=== PATIENT | female | born 1935 | race Caucasian/White ===

== ENCOUNTER 2018-11-27 13:30 | Outpatient (CLI) | payer MEDICARE ==
--- NOTE | 2018-11-27 15:33 | ULT ---
BILATERAL CAROTID DUPLEX ULTRASOUND: DATE: 11/27/18 HISTORY: Arteriosclerosis. TECHNIQUE: Norman scale ultrasound with color flow and spectral Doppler imaging of the extracranial carotid artery systems performed bilaterally. FINDINGS: There is plaque formation on both sides, left greater than right. The peak systolic velocity in the right ICA measures 59 cm/second with an end-diastolic velocity of 1 2 cm/second and a systolic ratio of 1.14. The peak systolic velocity in the left ICA measures 76 cm/second with an end-diastolic velocity of 23 cm/second and a systolic ratio of 1.20. Flow in both vertebral arteries remains antegrade. IMPRESSION: No evidence of hemodynamically significant stenosis. POS: OFF
== END 2018-11-27 13:31 | disposition home or self-care (01) ==
LOC: BICULT 13:30
PROVIDERS: ATTEND Family Medicine
DX: I65.23 Occlusion and stenosis of bilateral carotid arteries (principal)
CPT/HCPCS: 93880

== ENCOUNTER 2020-04-28 01:26 | Inpatient (IN) | payer MEDICARE ==
[2020-04-28] MEDS: glipiZIDE 5 MG TAB PO SCH (09:00)
[2020-04-28] MEDS ORDERED: Acetaminophen 325 MG TAB PO PRN (09:01)
[2020-04-28] MEDS ORDERED: Famotidine 20 MG TAB PO SCH (09:01)
[2020-04-28] MEDS ORDERED: Acetaminophen 650 MG Suppository PR PRN (09:01)
[2020-04-28] MEDS ORDERED: Senokot S 8.6-50 MG TAB PO PRN (09:01)
[2020-04-28] MEDS ORDERED: Guaifenesin DM 100-10/5 ML UDCUP PO PRN (09:01)
[2020-04-28] MEDS ORDERED: Ondansetron PF 4 MG/2 ML Vial IVP PRN (09:01)
[2020-04-28] MEDS ORDERED: Ondansetron ODT 4 MG TAB PO PRN (09:01)
[2020-04-28] MEDS ORDERED: Furosemide 40 MG/4 ML VIAL SLOW IVP SCH (09:40)
[2020-04-28] MEDS ORDERED: Lorazepam 2 MG/ML VIAL SLOW IVP PRN (10:34)
[2020-04-28] MEDS: Losartan 25 MG TAB PO SCH (11:46)
[2020-04-28] MEDS: Enoxaparin Sodium 40 MG/0.4 ML SYRINGE SC SCH (11:47)
[2020-04-28] MEDS: cefTRIAXone\\ROCEPHIN 1 GM in Sodium Chloride 0.9% 100 ML IVPB SCH (11:48)
[2020-04-28] MEDS: Propranolol HCl LA 80 MG CAP PO SCH (15:37)
[2020-04-28] MEDS ORDERED: hydrALAZINE 20 MG/ML VIAL SLOW IVP PRN (15:45)
[2020-04-28] MEDS ORDERED: Labetalol HCl 100 MG/20 ML VIAL SLOW IVP PRN (15:45)
[2020-04-28] MEDS ORDERED: Dextrose 50% Abboject 50 ML SYRINGE SLOW IVP PRN (16:04)
[2020-04-28] MEDS ORDERED: Dextrose 5% in Water 1,000 ML IV PRN (16:04)
[2020-04-28] MEDS ORDERED: HumaLOG 300 UNITS/3 ML VIAL SC PRN ×2 (16:04)
[2020-04-28] MEDS: Furosemide 40 MG/4 ML VIAL SLOW IVP SCH (16:19)
[2020-04-28] MEDS ORDERED: Melatonin 3 MG TAB PO PRN (21:50)
[2020-04-29 05:04] LABS: #Eosinphils 0.2 thou/uL (0.0-0.7); #Lymphocytes 1.4 thou/uL (1.20-3.40); #Monocytes 0.7 thou/uL (0.11-0.59); %Basophils 0.5 % (0.0-1.0); %Eosinophils 2.6 % (0.0-10.0); %Lymphocytes 21.6 % (21.0-51.0); %Monocytes 11.6 % (0.0-10.0); %Neutrophils 63.7 % (42.0-75.0); Mean Corpuscular HGB CONC 32.3 g/dL (32.0-36.0); Mean Corpuscular Hemoglobin 27.6 pg (27.0-31.0); Mean Corpuscular Volume 85.4 fL (78.0-98.0); Mean Platelet Volume 8.9 fL (7.4-10.4); Platelet Count 177 thou/uL (130-400); RBC Distribution Width 14.4 % (11.5-14.5); Red Blood Cell (RBC) Count 3.97 mill/uL (4.20-5.40); White Blood Cell (WBC) Count 6.3 thou/uL (4.8-10.8)
[2020-04-29 05:26] LABS: Anion Gap 15 mmol/L (10-20); BUN (Urea Nitrogen) 22 mg/dL (9.8-20.1); Calc. Creatinine Clearance 45 mL/min (70-130); Calcium 8.5 mg/dL (7.8-10.44); Carbon Dioxide 28 mmol/L (23-31); Chloride 99 mmol/L (98-107); Glucose 144 mg/dL (83-110); Magnesium 1.6 mg/dL (1.6-2.6); Sodium 139 mmol/L (136-145)
[2020-04-29 05:31] LABS: Potassium 2.8 mmol/L (3.5-5.1)
[2020-04-29] MEDS: Furosemide 40 MG/4 ML VIAL SLOW IVP SCH ×2 (05:57→14:39)
[2020-04-29] MEDS ORDERED: Potassium Chloride 20 MEQ TAB PO SCH ×2 (07:00)
[2020-04-29] MEDS: Enoxaparin Sodium 40 MG/0.4 ML SYRINGE SC SCH (09:13)
[2020-04-29] MEDS: Loratadine 10 MG TAB PO SCH (09:13)
[2020-04-29 10:44] VITALS: BMI 30.6
[2020-04-29] MEDS: Losartan 25 MG TAB PO SCH (11:21)
[2020-04-29] MEDS: Propranolol HCl LA 80 MG CAP PO SCH (11:21)
[2020-04-29] MEDS: glipiZIDE 5 MG TAB PO SCH (11:22)
[2020-04-29] MEDS: cefTRIAXone\\ROCEPHIN 1 GM in Sodium Chloride 0.9% 100 ML IVPB SCH (11:22)
[2020-04-29] MEDS ORDERED: Losartan 25 MG TAB PO SCH (16:15)
[2020-04-29] MEDS: Potassium Chloride 20 MEQ TAB PO SCH (16:39)
[2020-04-29] MEDS: Apixaban 5 MG TAB PO SCH (20:31)
[2020-04-30 06:29] LABS: #Eosinphils 0.2 thou/uL (0.0-0.7); #Lymphocytes 1.5 thou/uL (1.20-3.40); #Monocytes 0.7 thou/uL (0.11-0.59); #Neutrophils 2.9 thou/uL (1.40-6.50); %Basophils 0.7 % (0.0-1.0); %Eosinophils 3.7 % (0.0-10.0); %Lymphocytes 27.6 % (21.0-51.0); Hemoglobin 10.7 g/dL (12.0-16.0); Mean Corpuscular HGB CONC 32.2 g/dL (32.0-36.0); Mean Corpuscular Hemoglobin 27.6 pg (27.0-31.0); Mean Corpuscular Volume 85.9 fL (78.0-98.0); Mean Platelet Volume 8.6 fL (7.4-10.4); Platelet Count 190 thou/uL (130-400); RBC Distribution Width 14.4 % (11.5-14.5); Red Blood Cell (RBC) Count 3.87 mill/uL (4.20-5.40); White Blood Cell (WBC) Count 5.3 thou/uL (4.8-10.8)
[2020-04-30 06:47] LABS: Anion Gap 13 mmol/L (10-20); BUN (Urea Nitrogen) 21 mg/dL (9.8-20.1); Calc. Creatinine Clearance 45 mL/min (70-130); Calcium 8.4 mg/dL (7.8-10.44); Carbon Dioxide 31 mmol/L (23-31); Cardiac Risk 3.9 (Less than 4.5); Chloride 99 mmol/L (98-107); Cholesterol 138 mg/dl (< 200 Desired); Glucose 126 mg/dL (83-110); HDL Cholesterol 35 mg/dL (>60 Neg Risk); LDL Cholesterol, Calculated 89 mg/dL; Potassium 3.3 mmol/L (3.5-5.1); Sodium 140 mmol/L (136-145); Triglycerides 70 mg/dL (Less than 150)
[2020-04-30] MEDS ORDERED: Losartan 25 MG TAB PO SCH (09:00)
[2020-04-30] MEDS ORDERED: Furosemide 20 MG TAB PO SCH (09:00)
[2020-04-30] MEDS: Propranolol HCl LA 80 MG CAP PO SCH (09:31)
[2020-04-30] MEDS: glipiZIDE 5 MG TAB PO SCH (09:31)
[2020-04-30] MEDS: Apixaban 5 MG TAB PO SCH (09:32)
[2020-04-30] MEDS: Loratadine 10 MG TAB PO SCH (09:33)
[2020-04-30] MEDS: Potassium Chloride 20 MEQ TAB PO SCH (09:33)
[2020-04-30] MEDS: cefTRIAXone\\ROCEPHIN 1 GM in Sodium Chloride 0.9% 100 ML IVPB SCH (09:52)
[2020-04-30 11:51] VITALS: BP 188/72; TEMP 97.9
== END 2020-04-30 13:40 | disposition home health service (06) | DRG 689 ==
LOC: ERS 01:26 → 3SE 02:01
PROVIDERS: ADMIT Internal Medicine; ATTEND Emergency Medicine
DX: N39.0 Urinary tract infection, site not specified (principal); I50.33 Acute on chronic diastolic (congestive) heart failure; N17.9 Acute kidney failure, unspecified; I48.20 Chronic atrial fibrillation, unspecified; Z20.822 Contact with and (suspected) exposure to COVID-19; E87.6 Hypokalemia; I16.0 Hypertensive urgency; R60.0 Localized edema; E11.9 Type 2 diabetes mellitus without complications; I11.0 Hypertensive heart disease with heart failure; E78.5 Hyperlipidemia, unspecified; E78.00 Pure hypercholesterolemia, unspecified; I45.6 Pre-excitation syndrome; Z96.652 Presence of left artificial knee joint; D64.9 Anemia, unspecified; F41.9 Anxiety disorder, unspecified; Z28.21 Immunization not carried out because of patient refusal; Z87.891 Personal history of nicotine dependence; Z90.49 Acquired absence of other specified parts of digestive tract; Z90.710 Acquired absence of both cervix and uterus; Z80.3 Family history of malignant neoplasm of breast; Z82.49 Family history of ischemic heart disease and other diseases of the circulatory system; Z88.3 Allergy status to other anti-infective agents; Z88.0 Allergy status to penicillin; Z88.8 Allergy status to other drugs, medicaments and biological substances; Z87.440 Personal history of urinary (tract) infections; Z79.84 Long term (current) use of oral hypoglycemic drugs; Z79.899 Other long term (current) drug therapy
CPT/HCPCS: 36415; 36416; 78451; 80048; 80061; 83735; 84484; 85025; 93306; 99285; A9500; J0696; J1650; J1940; J2060; J3490

== ENCOUNTER 2020-05-18 12:50 | Inpatient (IN) | payer MEDICARE ==
[2020-05-18] MEDS ORDERED: Nitroglycerin 0.4 MG TAB (25 Tab Bottle) SL PRN (15:33)
[2020-05-18] MEDS ORDERED: Sodium Chloride 0.9% 1,000 ML IV SCH (15:45)
[2020-05-18] MEDS ORDERED: Ondansetron PF 4 MG/2 ML Vial IVP PRN (15:45)
[2020-05-18] MEDS ORDERED: Acetaminophen 325 MG TAB PO PRN (15:45)
[2020-05-18] MEDS ORDERED: Ondansetron ODT 4 MG TAB SL PRN (15:45)
[2020-05-18 16:23] VITALS: BMI 32.5
[2020-05-18] MEDS ORDERED: Apixaban 5 MG TAB PO SCH (21:00)
[2020-05-18] MEDS: Sodium Chloride 0.9% 1,000 ML IV SCH (21:16)
[2020-05-18] MEDS ORDERED: Dextrose 5% in Water 1,000 ML IV PRN (23:12)
[2020-05-18] MEDS ORDERED: Dextrose 50% Abboject 50 ML SYRINGE SLOW IVP PRN (23:12)
[2020-05-19 04:14] LABS: Anion Gap 12 mmol/L (10-20); BUN (Urea Nitrogen) 17 mg/dL (9.8-20.1); Calc. Creatinine Clearance 64 mL/min (70-130); Calcium 8.2 mg/dL (7.8-10.44); Carbon Dioxide 21 mmol/L (23-31); Chloride 108 mmol/L (98-107); Glucose 128 mg/dL (83-110); Potassium 3.6 mmol/L (3.5-5.1); Sodium 137 mmol/L (136-145)
[2020-05-19] MEDS ORDERED: Preparation H HC 1% Cream 26 GM TUBE TOP SCH (09:00)
[2020-05-19] MEDS ORDERED: Propranolol HCl LA 80 MG CAP PO SCH (09:00)
[2020-05-19] MEDS: Aspirin Chewable 81 MG TAB PO SCH (09:06)
[2020-05-19] MEDS: Loratadine 10 MG TAB PO SCH (09:06)
[2020-05-19] MEDS ORDERED: hydrALAZINE 25 MG TAB PO SCH (09:30)
[2020-05-19] MEDS ORDERED: Carvedilol 6.25 MG TAB PO SCH (10:15)
[2020-05-19] MEDS: Hydrocortisone 1% Cream 30 GM TUBE TOP SCH ×2 (11:10→22:15)
[2020-05-19] MEDS: Sodium Chloride 0.9% 1,000 ML IV SCH (11:36)
[2020-05-19] MEDS: HumaLOG 300 UNITS/3 ML VIAL SC PRN (11:36)
[2020-05-19] MEDS: Carvedilol 6.25 MG TAB PO SCH (16:33)
[2020-05-19] MEDS: hydrALAZINE 25 MG TAB PO SCH ×2 (16:33→22:04)
[2020-05-19] MEDS: Enoxaparin Sodium 100 MG/ML SYRINGE SC SCH (22:05)
[2020-05-19] MEDS: Docusate 100 MG CAP PO SCH (22:05)
[2020-05-20 05:07] LABS: Anion Gap 10 mmol/L (10-20); BUN (Urea Nitrogen) 14 mg/dL (9.8-20.1); Calc. Creatinine Clearance 65 mL/min (70-130); Calcium 7.9 mg/dL (7.8-10.44); Carbon Dioxide 22 mmol/L (23-31); Chloride 107 mmol/L (98-107); Glucose 131 mg/dL (83-110); Potassium 3.1 mmol/L (3.5-5.1); Sodium 136 mmol/L (136-145)
[2020-05-20] MEDS ORDERED: Electrolyte Replacement Protocol 1 EACH FS PRN (05:59)
[2020-05-20] MEDS ORDERED: Magnesium 2 GM/50 ML 2 GM in Premix Bag 1 BAG IVPB SCH (06:15)
[2020-05-20] MEDS ORDERED: Potassium Chloride 20 MEQ TAB PO SCH (06:15)
[2020-05-20] MEDS: Carvedilol 6.25 MG TAB PO SCH ×2 (09:02→15:26)
[2020-05-20] MEDS: Aspirin Chewable 81 MG TAB PO SCH (09:02)
[2020-05-20] MEDS: Enoxaparin Sodium 100 MG/ML SYRINGE SC SCH (09:02)
[2020-05-20] MEDS: hydrALAZINE 25 MG TAB PO SCH ×3 (09:03→20:25)
[2020-05-20] MEDS: Loratadine 10 MG TAB PO SCH (09:03)
[2020-05-20] MEDS: Hydrocortisone 1% Cream 30 GM TUBE TOP SCH ×2 (09:06→20:28)
[2020-05-20] MEDS: Docusate 100 MG CAP PO SCH ×2 (09:06→20:25)
[2020-05-20] MEDS: Sodium Chloride 0.9% 1,000 ML IV SCH (09:10)
[2020-05-20] MEDS: HumaLOG 300 UNITS/3 ML VIAL SC PRN (11:39)
[2020-05-20] MEDS ORDERED: Communication Order-Pharmacy FS SCH (15:30)
[2020-05-21 05:07] LABS: #Eosinphils 0.1 thou/uL (0.0-0.7); #Lymphocytes 0.9 thou/uL (1.20-3.40); #Monocytes 0.5 thou/uL (0.11-0.59); #Neutrophils 2.4 thou/uL (1.40-6.50); %Basophils 0.4 % (0.0-1.0); %Eosinophils 2.6 % (0.0-10.0); %Lymphocytes 23.6 % (21.0-51.0); %Monocytes 11.8 % (0.0-10.0); %Neutrophils 61.7 % (42.0-75.0); Hemoglobin 9.4 g/dL (12.0-16.0); Mean Corpuscular HGB CONC 31.7 g/dL (32.0-36.0); Mean Corpuscular Hemoglobin 27.6 pg (27.0-31.0); Mean Platelet Volume 8.8 fL (7.4-10.4); Platelet Count 147 thou/uL (130-400); RBC Distribution Width 14.8 % (11.5-14.5); Red Blood Cell (RBC) Count 3.42 mill/uL (4.20-5.40); White Blood Cell (WBC) Count 3.8 thou/uL (4.8-10.8)
[2020-05-21 05:30] LABS: Anion Gap 11 mmol/L (10-20); BUN (Urea Nitrogen) 13 mg/dL (9.8-20.1); Calc. Creatinine Clearance 61 mL/min (70-130); Calcium 8.1 mg/dL (7.8-10.44); Carbon Dioxide 21 mmol/L (23-31); Chloride 108 mmol/L (98-107); Glucose 129 mg/dL (83-110); Magnesium 1.9 mg/dL (1.6-2.6); Potassium 3.6 mmol/L (3.5-5.1); Sodium 136 mmol/L (136-145)
[2020-05-21] MEDS: Carvedilol 6.25 MG TAB PO SCH (05:58)
[2020-05-21] MEDS: Aspirin Chewable 81 MG TAB PO SCH (05:58)
[2020-05-21] MEDS: Docusate 100 MG CAP PO SCH (05:59)
[2020-05-21] MEDS: hydrALAZINE 25 MG TAB PO SCH (05:59)
[2020-05-21] MEDS: Loratadine 10 MG TAB PO SCH (06:00)
[2020-05-21] MEDS: Hydrocortisone 1% Cream 30 GM TUBE TOP SCH (06:00)
[2020-05-21] MEDS ORDERED: Sodium Chloride 0.9% 1,000 ML IV SCH (06:00)
[2020-05-21] MEDS ORDERED: Magnesium 2 GM/50 ML 2 GM in Premix Bag 1 BAG IVPB SCH ×2 (06:30→12:00)
[2020-05-21] MEDS ORDERED: Heparin 10,000 UNITS/ 10 ML VIAL ONE (06:36)
[2020-05-21] MEDS ORDERED: Lidocaine 1% (PF) 30 ML VIAL ONE (06:36)
[2020-05-21] MEDS ORDERED: Carvedilol 6.25 MG TAB PO SCH (09:00)
[2020-05-21] MEDS ORDERED: Apixaban 5 MG TAB PO SCH (09:00)
[2020-05-21] MEDS: HumaLOG 300 UNITS/3 ML VIAL SC PRN (12:09)
[2020-05-21 12:13] VITALS: BP 135/63; TEMP 98.4
== END 2020-05-21 14:55 | disposition home or self-care (01) | DRG 311 ==
LOC: 2NO 15:12 → OBSVTOIN 05-19 20:21
PROVIDERS: ADMIT Internal Medicine; ATTEND Internal Medicine
DX: I20.0 Unstable angina (principal); I50.32 Chronic diastolic (congestive) heart failure; I48.20 Chronic atrial fibrillation, unspecified; I13.0 Hypertensive heart and chronic kidney disease with heart failure and stage 1 through stage 4 chronic kidney disease, or unspecified chronic kidney disease; E78.5 Hyperlipidemia, unspecified; F32.9 Major depressive disorder, single episode, unspecified; K21.9 Gastro-esophageal reflux disease without esophagitis; E11.22 Type 2 diabetes mellitus with diabetic chronic kidney disease; F41.9 Anxiety disorder, unspecified; N18.9 Chronic kidney disease, unspecified; E66.01 Morbid (severe) obesity due to excess calories; I45.6 Pre-excitation syndrome; Z96.652 Presence of left artificial knee joint; Z88.0 Allergy status to penicillin; Z88.1 Allergy status to other antibiotic agents; Z88.8 Allergy status to other drugs, medicaments and biological substances; Z88.2 Allergy status to sulfonamides; Z90.49 Acquired absence of other specified parts of digestive tract; Z90.710 Acquired absence of both cervix and uterus; Z86.73 Personal history of transient ischemic attack (TIA), and cerebral infarction without residual deficits; Z79.01 Long term (current) use of anticoagulants; Z68.32 Body mass index [BMI] 32.0-32.9, adult
CPT/HCPCS: 36415; 36416; 80048; 83735; 85025; 94760; G0378; J1644; J1650; J1815; J2001; J3475